=== PATIENT | female | born 1940 | race Caucasian/White ===

== ENCOUNTER → 2019-12-10 | Emergency (ER) | payer MEDICARE, OTHER ==
[~2019-12-10] VITALS: Ht 154.9 cm; Wt 45.4 kg
[~2019-12-10] MED LIST: ACETAMINOPHEN 325 MG TAB ONE
[2019-12-10 10:00] LABS: BASOPHILS % 0.3 % (0.0-1.0); EOSINOPHILS % 0.5 % (0.0-6.0); HEMOGLOBIN 12.9 g/dL (12.0-16.0); LYMPHOCYTES # (AUTO) 1.2 (1.0-3.2); LYMPHOCYTES % 15.3 % (18.0-39.1); MEAN CORPUSCULAR HEMOGLOBIN 27.6 pg (28-32); MEAN CORPUSCULAR HGB CONC 30.7 g/dL (31-35); MEAN CORPUSCULAR VOLUME 89.9 fL (81-99); MONOCYTES # (AUTO) 0.4 (0.2-0.8); MONOCYTES % 5.6 % (4.4-11.3); NEUTROPHILS % 77.8 % (38.7-80.0); PLATELET COUNT 129 x10e3/uL (140-360); RED BLOOD COUNT 4.67 x10e6/uL (3.6-5.1); RED CELL DISTRIBUTION WIDTH 14.5 % (11.7-14.4)
[2019-12-10 10:28] LABS: ALANINE AMINOTRANSFERASE 14 IU/L (0-55); ALBUMIN 3.4 g/dL (3.5-5.0); ALBUMIN/GLOBULIN RATIO 1.1 (0.8-2.0); ALKALINE PHOSPHATASE 102 IU/L (40-150); ANION GAP 9.7 mmol/L (8-16); BLOOD UREA NITROGEN 21 mg/dL (7-26); BUN/CREATININE RATIO 31 (6-25); CALCIUM 8.9 mg/dL (8.4-10.2); CARBON DIOXIDE 26 mmol/L (22-29); CHLORIDE 111 mmol/L (98-107); CREATINE KINASE 44 IU/L (29-168); CREATININE, SERUM 0.68 mg/dL (0.57-1.11); EST GLOMERULAR FILTRATION RATE > 60 ML/MIN (60-); GLUCOSE 85 mg/dL (74-118); POTASSIUM 3.7 mmol/L (3.5-5.1); SODIUM 143 mmol/L (136-145)
--- NOTE | 2019-12-10 12:55 | Diagnostic Imaging Report ---
X-ray chest AP portable Comparison: None History: Chest pain, unresponsive Findings: Central airways unremarkable. Possible cardiomegaly. Increased opacity in the retrocardiac area. Atelectasis/consolidation are a pleural effusion is not entirely ruled out. The visualization of this area is partially obscured by overlying wires. There is no pneumothorax. Right lung appears grossly unremarkable. Visualized skeletal structures are unremarkable for acute abnormalities. Upper abdomen unremarkable. Impression: Increased opacity in the left lower lung and especially retrocardiac area with the differential diagnosis as above. Signed by: Amrik Gupta MD on 12/10/2019 12:52 PM
[2019-12-10 13:17] VITALS: BP 162/85
--- NOTE | 2019-12-10 13:25 | NUR ---
Spoke with staff at [facility] informed them that patient's workup was unremakable and that the patient would be transferred back to the facility.
--- NOTE | 2019-12-10 15:10 | Emergency Department Note ---
History of Present Illnes History of Present Illness Chief Complaint: General Medicine Complaints History of Present Illness This is a 79 year old female arrived to the ED for period of unresponsiveness at the group home. On arrival to ED patient baseline mental status when discussed with nurse from group home. Patient unable to fried history given medical condition . Chief Complaint Comment HERE FROM [facility] FOR BECOMING UNRESPONISVE WHILE BEING TRANSFERRED FROM BED TO WHEELCHAIR. CLIENT REPORTED BY STAFF AT [facility] NOT TYPICALLY VERBAL, WAS ADVISED BY NURSE AT [facility] THAT SHE SUCKS HER THUMB AND RESPONDS SIMPLE YES OR NO ANSWERS. 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 Any updates have been documented here. Past Medical History Recent Fever: No Clinical Suspicion of Infectio: No New/Unexplained Change in Ment: No Social History Smoking Cessation: Never Smoker Counseling Performed: No Alcohol Use: None Any Illegal Drug Use: No TB Exposure/Symptoms: No Physically hurt or threatened: No Other Any Pre-Existing Lines (PICC,: Yes (22 RAC STARTED BY EMS) Is patient up to date on immun: No Last Flu: UNKNOWN Last Pneumovax: UNKNOWN Review of Systems ROS Narrative Unable to obtain ROS: Unable to obtain due to, altered mental status Physical Exam Related Data Allergies: Coded Allergies: No Known Allergies (Unverified , 12/10/19) Triage Vital Signs Vital Signs Date Time Temp Pulse Resp B/P (MAP) Pulse Ox O2 Delivery O2 Flow Rate FiO2 12/10/19 09:17 97.4 86 18 142/78 93 Vital signs reviewed: Yes Physical Exam CONSTITUTIONAL Constitutional: Present cachectic HENT HENT: Present normocephalic, Present atraumatic, Present oropharynx clear/moist HENT L/R: Present left ext ear normal, Present right ext ear normal EYES Eyes: Reports PERRL, Reports conjunctivae normal NECK Neck: Present ROM normal PULMONARY Pulmonary: Present effort normal, Present breath sounds normal CARDIOVASCULAR Cardiovascular: Present regular rhythm, Present heart sounds normal, Present capillary refill normal, Present normal rate GASTROINTESTINAL Abdominal: Present soft, Present nontender, Present bowel sounds normal GENITOURINARY Genitourinary: Present exam deferred SKIN Skin: Present dry MUSCULOSKELETAL NEUROLOGICAL Neurological: Present alert; Absent oriented x 3 PSYCHOLOGICAL Psychological: Absent mood/affect normal, Absent behavior normal Results Laboratory Result Diagram: 12/10/1953 12/10/19 0954 Laboratory Laboratory Tests Test 12/10/19 09:54 White Blood Count 7.72 x10e3/uL (4.8-10.8) Red Blood Count 4.67 x10e6/uL (3.6-5.1) Hemoglobin 12.9 g/dL (12.0-16.0) Hematocrit 42.0 % (34.2-44.1) Mean Corpuscular Volume 89.9 fL (81-99) Mean Corpuscular Hemoglobin 27.6 pg (28-32) Mean Corpuscular Hemoglobin Concent 30.7 g/dL (31-35) Red Cell Distribution Width 14.5 % (11.7-14.4) Platelet Count 129 x10e3/uL (140-360) Neutrophils (%) (Auto) 77.8 % (38.7-80.0) Lymphocytes (%) (Auto) 15.3 % (18.0-39.1) Monocytes (%) (Auto) 5.6 % (4.4-11.3) Eosinophils (%) (Auto) 0.5 % (0.0-6.0) Basophils (%) (Auto) 0.3 % (0.0-1.0) Neutrophils # (Auto) 6.0 (2.1-6.9) Lymphocytes # (Auto) 1.2 (1.0-3.2) Monocytes # (Auto) 0.4 (0.2-0.8) Eosinophils # (Auto) 0.0 (0.0-0.4) Basophils # (Auto) 0.0 (0.0-0.1) Absolute Immature Granulocyte (auto 0.04 x10e3/uL (0-0.1) Sodium Level 143 mmol/L (136-145) Potassium Level 3.7 mmol/L (3.5-5.1) Chloride Level 111 mmol/L (98-107) Carbon Dioxide Level 26 mmol/L (22-29) Anion Gap 9.7 mmol/L (8-16) Blood Urea Nitrogen 21 mg/dL (7-26) Creatinine 0.68 mg/dL (0.57-1.11) Estimat Glomerular Filtration Rate > 60 ML/MIN (60-) BUN/Creatinine Ratio 31 (6-25) Glucose Level 85 mg/dL (74-118) Calcium Level 8.9 mg/dL (8.4-10.2) Total Bilirubin 0.4 mg/dL (0.2-1.2) Aspartate Amino Transf (AST/SGOT) 18 IU/L (5-34) Alanine Aminotransferase (ALT/SGPT) 14 IU/L (0-55) Alkaline Phosphatase 102 IU/L (40-150) Creatine Kinase 44 IU/L (29-168) Creatine Kinase MB 0.90 ng/mL (0-5.0) Troponin I 0.006 ng/mL (0-0.300) Total Protein 6.4 g/dL (6.5-8.1) Albumin 3.4 g/dL (3.5-5.0) Globulin 3.0 g/dL (2.3-3.5) Albumin/Globulin Ratio 1.1 (0.8-2.0) Assessment & Plan Medical Decision Making MDM 79-year-old female sent from a group home for question of change in mental status, patient's labwork and imaging unremarkable and the ED. nPt transfer back to group home. Assessment & Plan Final Impression: (1) Dementia Depart Disposition: DIS TO [facility]LTER BED Last Vital Signs Date Time Temp Pulse Resp B/P (MAP) Pulse Ox O2 Delivery O2 Flow Rate FiO2 12/10/19 13:17 78 18 95 12/10/19 11:59 172/85 12/10/19 09:17 97.4 TAVON VALE, DO Dec 10, 2019 14:52
== END ==
LOC: ER 09:21
DX: F03.90 Unspecified dementia, unspecified severity, without behavioral disturbance, psychotic disturbance, mood disturbance, and anxiety (principal)
CPT/HCPCS: 36415; 71045; 80053; 82550; 82553; 84484; 85025; 99284